=== PATIENT | male | born 1965 | race Caucasian/White ===

== ENCOUNTER 2017-09-28 09:39 | Emergency (ER) | payer BC ==
[~2017-09-28] VITALS: Ht 177.8 cm; Wt 91.2 kg
[~2017-09-28 09:39] MED LIST: ASPIRIN EC81 MG PO; CLOPIDOGREL75 MG PO; CRESTOR10 MG PO; ISOSORBIDE MONO30 MG PO; METOPROLOL SUCC25 MG PO; NITROSTAT0.4 MG SL; OMEPRAZOLE20 MG PO; ZYRTEC10 M3 PO
[2017-09-28] MEDS ORDERED: LORAZEPAM1 MG PO (10:34)
--- NOTE | 2017-09-29 20:49 | EKG ---
[facility] [address] [place] [address] Signed Normal sinus rhythm Normal ECG When compared with ECG of 17-APR-2016 19:22, No significant change was found Confirmed by SANTY HARGROVE MD ([id number]) on 09/29/2017 8:49:10 PM Electronically Signed By: SANTY HARGROVE MD 09/29/17 2049 PATIENT NAME: WILFRIDO VARGAS JOE Electrocardiogram DATE OF : 65 PHYSICIAN: SANTY HARGROVE MD REPORT #: [id number] REPORT IS CONFIDENTIAL AND NOT TO BE RELEASED WITHOUT AUTHORIZATION
== END 2017-09-28 11:06 | disposition home or self-care (01) ==
LOC: ED 09:39
DX: R06.00 Dyspnea, unspecified (principal); Z91.038 Other insect allergy status; Z91.030 Bee allergy status; Z79.82 Long term (current) use of aspirin; Z79.899 Other long term (current) drug therapy
CPT/HCPCS: 71045; 80053; 84484; 85025; 85379; 93005; 93010; 99284

== ENCOUNTER 2020-12-27 06:33 | Day surgery (SDC) | payer BC ==
[~2020-12-27 06:33] MED LIST changes: +LORAZEPAM1 MG PO
--- NOTE | 2020-12-27 09:27 | NUR ---
12/27/20 0926 Denise Del Cid 0940 PT ARRIVED TO PACU ON 2L VIA NC, PT WAKES AND IS REORIENTED TO PACU. VSS.
--- NOTE | 2020-12-27 10:10 | NUR ---
PT ALERT, ORIENTED AND SEEMS VERY RELAXED. HERE FOR SCOPE, HAS HAD PREVIOUS. SEEMED TO DEAL WITH PREP APPROPRIATELY, ALL QUESTIONS ASKED ANSWERED. GAVE BLESSING, WILL FOLLOW NEEDED
--- NOTE | 2020-12-27 10:11 | OR ---
[facility] [address] [place], [place] [address] Signed DATE OF OPERATION: 12/27/2020 SURGEON: Michelle Murrieta MD PREOPERATIVE DIAGNOSES: 1. Personal history of colonic polyps in 2016 at age 50. 2. Father with colonic polyps at age 80. POSTOPERATIVE DIAGNOSES: 1. 4-6 mm polyps x3 at 8 cm/rectum. 2. 4 mm polyp at 60 cm. 3. 4-6 mm polyps x2 at hepatic flexure. 4. 4-6 mm polyps x3 at 50 cm. PROCEDURE: Colonoscopy with hot biopsy. ESTIMATED BLOOD LOSS: None. INDICATIONS: Rik is a 55-year-old gentleman, who returns for a followup colonoscopy. His father had colonic polyps at age 80. Rik had adenomatous polyps in the right colon back in 2016 at the age of 50. He currently has no lower GI complaints. In the office, I gave him a pamphlet on colonoscopy. He remembers the test quite well. There is risk including, but not limited to gas bloating, crampy abdominal pain, bleeding, perforation requiring surgery, and missed diagnosis. He also understands the need for IV conscious sedation. He had expressed understanding and wished to proceed. PROCEDURE NOTE: Rik was taken into our endoscopy suite and placed in the left lateral decubitus position. He was given IV sedation with 9 mg of Versed and 175 mcg of fentanyl. A digital rectal exam was performed and this was unremarkable. Prostate not particularly concerning. The adult colonoscope was introduced, advanced all around into the cecum under direct visualization of the camera. It took a little extra sedation abdominal compression in order to advance the scope. His prep was quite excellent. We could easily see the appendiceal orifice and the ileocecal valve. The scope was slowly withdrawn. The above-mentioned polyps were easily removed with the help of hot biopsy forceps. No diverticulosis. The scope had been retroflexed in the rectum and there was no additional pathology noted above the anal canal. After this, the gas was suctioned Electronically Signed By: MICHELLE MURRIETA MD 12/27/20 1011 PATIENT NAME: RIK VARGAS OPERATIVE REPORT DATE OF : 65 REPORT #: [id number] PHYSICIAN: MICHELLE MURRIETA MD PCP: TERE CARNES MD REPORT IS CONFIDENTIAL AND NOT TO BE RELEASED WITHOUT AUTHORIZATION [facility] [address] [place], [place] [address] Signed out and the colonoscope removed. Rik has tolerated the procedure quite well. RECOMMENDATIONS: I will see Rik back in my office in 7 to 14 days to review his results. I suspect he will stay on the 5-year rotation. Michelle Murrieta MD ALB/MALISSAL /[id number] cc: MD Tere Rodriguez MD Copies: MICHELLE MURRIETA MD, ROBERT D DMD ~ Electronically Signed By: MICHELLE MURRIETA MD 12/27/20 1011 PATIENT NAME: RIK VARGAS OPERATIVE REPORT DATE OF : 65 REPORT #: [id number] PHYSICIAN: MICHELLE MURRIETA MD PCP: TERE CARNES MD REPORT IS CONFIDENTIAL AND NOT TO BE RELEASED WITHOUT AUTHORIZATION
--- NOTE | 2020-12-28 18:13 | PATH ---
[facility] [address] [place], [place] [address] Signed SPECIMEN(S): A COLON POLYP 8 CM SPECIMEN(S): B COLON POLYP 60 CM SPECIMEN(S): C HEPATIC FLEXURE POLYP SPECIMEN(S): D COLON POLYP 50 CM SPECIMEN SOURCE: A. COLON POLYP 8 CM B. COLON POLYP 60 CM C. HEPATIC FLEXURE POLYP D. COLON POLYP 50 CM CLINICAL HISTORY: History of polyps. Post Op: Multiple colon polyps. MICROSCOPIC DESCRIPTION: Histologic sections of all submitted blocks are examined by light microscopy. These findings, together with the gross examination, support the pathologic diagnosis. FINAL PATHOLOGIC DIAGNOSIS: A. Colon, polyp at 8 cm, polypectomy: - Hyperplastic polyp. - Negative for dysplasia or malignancy. B. Colon, polyp at 60 cm, polypectomy: - Colonic mucosa with no histopathologic abnormality. - Negative for dysplasia or malignancy. C. Colon, hepatic flexure, polyp, polypectomy: - Fragments of tubular adenoma. - Negative for high-grade dysplasia or malignancy. D. Colon, polyp at 50 cm, polypectomy: - Fragments of tubular adenoma. - Negative for high-grade dysplasia or malignancy. COMMENT: Regarding specimen B: Multiple additional deeper levels were examined. NAL:cml:C2NR GROSS DESCRIPTION: Four specimens are received in four containers labeled with "TE". A. The specimen, labeled "TE, colon polyp at 8 cm," is received in formalin and consists of one piece of pink-sharma tissue both measuring 0.4 cm in greatest dimension the specimen is bisected and PATIENT NAME: WILFRIDO VARGAS PATHOLOGY DATE OF : 65 REPORT #: [id number] PHYSICIAN: JOESPH LYNN PCP: TERE CARNES MD REPORT IS CONFIDENTIAL AND NOT TO BE RELEASED WITHOUT AUTHORIZATION [facility] [address] [place], [place] [address] Signed submitted entirely in cassette A1. B. The specimen, labeled "TE, colon polyp 60 cm," is received in formalin and consists of one fragment of pink-sharma tissue (0.2 cm in greatest dimension). The specimen is submitted entirely in cassette B1. C. The specimen, labeled "TE, hepatic flexure polyp," is received in formalin and consists of four fragments of pink-sharma tissue that range in size from 0.1-0.3 cm in greatest dimension. The specimen is submitted entirely in cassette C1. D. The specimen, labeled "TE, colon polyp at 50 cm," is received in formalin and consists of six fragments of pink-sharma tissue that range in size from 0.2-0.3 cm in greatest dimension . The specimen is submitted entirely in cassette D1. AC/AI (under the direct supervision of a pathologist) PERFORMING LABORATORY: The technical component was performed by [facility], [address] [place] [id number] (Flosser: Nia Sheppard MD; CLIA# [id number]). [facility], [address] [address] (CLIA# [id number]). Diagnostician: Dayna Turpin MD Pathologist Electronically Signed 12/28/2020 Copies: ~ PATIENT NAME: WILFRIDO VARGAS PATHOLOGY DATE OF : 65 REPORT #: [id number] PHYSICIAN: JOESPH PATHOLOGY PCP: TERE CARNES MD REPORT IS CONFIDENTIAL AND NOT TO BE RELEASED WITHOUT AUTHORIZATION
== END 2020-12-27 10:15 | disposition home or self-care (01) ==
LOC: DS 06:33
PROVIDERS: ATTEND Colon & Rectal Surgery
PROC: 0DBL8ZX Excision of Transverse Colon, Via Natural or Artificial Opening Endoscopic, Diagnostic (ICD-10-PCS; 2020-12-27)
PROC: 0DBP8ZX Excision of Rectum, Via Natural or Artificial Opening Endoscopic, Diagnostic (ICD-10-PCS; principal; 2020-12-27 06:45)
DX: D12.3 Benign neoplasm of transverse colon (principal); K62.1 Rectal polyp; I25.10 Atherosclerotic heart disease of native coronary artery without angina pectoris; I10 Essential (primary) hypertension; J45.909 Unspecified asthma, uncomplicated; K21.9 Gastro-esophageal reflux disease without esophagitis; Z88.8 Allergy status to other drugs, medicaments and biological substances; Z86.010 Personal history of colon polyps; Z83.71 Family history of colonic polyps
CPT/HCPCS: 99153; G0500; J2250; J3010; J7121

== ENCOUNTER 2024-02-10 16:46 | Emergency (ER) | payer BC ==
[~2024-02-10] VITALS: Ht 177.8 cm; Wt 95.6 kg
[~2024-02-10 16:46] MED LIST changes: +COQ-10100 MG PO; +COZAAR100 MG PO; +ELIQUIS5 MG PO; +FLOMAX0.4 MG PO; +PLAVIX75 MG PO; +ZYRTEC10 MG PO
[2024-02-10 19:25] LABS: BASOPHILS 0.5 % (0-2); EOSINOPHILS 3.1 % (0-6); HEMATOCRIT 44.4 % (35.0-50.0); HEMOGLOBIN 15.2 g/dL (12.0-18.0); LYMPHOCYTES 25.5 % (24-44); MCH 29.6 (27-36); MCHC 34.1 g/dl (30-36); MCV 86.8 fl (81-99); MONOCYTES 12.3 % (0-12); NEUTROPHILS 58.6 % (39-80); PLATELET COUNT 189 K/uL (140-440); RBC 5.12 M/ul (4.3-5.7); RDW 13.9 (10.5-15.0)
[2024-02-10 19:52] LABS: ALBUMIN 3.8 g/dL (3.4-5.0); ALBUMIN/GLOBULIN RATIO 1.19 (1.1-2.4); ANION GAP 12.5 (7-21); BILIRUBIN, TOTAL 0.7 ng/dL (0.2-1.0); BUN/CREATININE RATIO 17.2 (6.0-28.6); CALCIUM 8.6 mg/dL (8.5-10.1); CREATININE, SERUM 0.93 mg/dL (0.70-1.30); POTASSIUM 3.5 mmol/L (3.5-5.1); TSH, 3RD GENERATION 2.443 uIU/mL (0.358-3.740)
[2024-02-10 20:07] LABS: BILIRUBIN, URINE NEGATIVE (negative); BLOOD/HGB, URINE NEGATIVE (Negative); KETONE, URINE NEGATIVE (Negative); LEUK ESTERASE, URINE NEGATIVE (negative); NITRITE, URINE NEGATIVE (negative)
[2024-02-10 21:05] VITALS: BP 152/89
--- NOTE | 2024-02-11 15:10 | EKG ---
[facility] [address] [facility] [place] [address] Signed Poor data quality, interpretation may be adversely affected Normal sinus rhythm Normal ECG When compared with ECG of 09-NOV-2023 09:54, No significant change was found Confirmed by Sylvie Pak ([id number]) on 02/11/2024 3:10:00 PM Electronically Signed By: SYLVIE PAK MD 02/11/24 1510 PATIENT NAME: WILFRIDO VARGAS JOE Electrocardiogram DATE OF : 65 PHYSICIAN: SYLVIE PAK MD REPORT #: [id number] REPORT IS CONFIDENTIAL AND NOT TO BE RELEASED WITHOUT AUTHORIZATION
== END 2024-02-10 20:56 | disposition home or self-care (01) ==
LOC: ED 16:46
PROVIDERS: Internal Medicine
DX: R00.2 Palpitations (principal); I25.10 Atherosclerotic heart disease of native coronary artery without angina pectoris; Z95.5 Presence of coronary angioplasty implant and graft; Z88.8 Allergy status to other drugs, medicaments and biological substances; Z91.030 Bee allergy status; Z79.899 Other long term (current) drug therapy; Z79.82 Long term (current) use of aspirin
CPT/HCPCS: 36415; 71045; 80053; 81003; 83735; 84443; 84484; 85025

== ENCOUNTER 2024-04-26 23:00 | Emergency (ER) | payer BC ==
[~2024-04-26] VITALS: Ht 177.8 cm; Wt 95.0 kg
[~2024-04-26 23:00] MED LIST changes: +EPINEPHRIN0.3 MG/0.3 IM; +HYDROCODON-ACE1 EA10 PO; +METOPROLOL SUCC50 MG PO
[2024-04-26] MEDS ORDERED: TRANEXAMIC ACID 1,000 MG/10 ML AMP TOP ONE (23:30)
[2024-04-27 00:17] VITALS: BP 173/99
== END 2024-04-27 00:17 | disposition home or self-care (01) ==
LOC: ED 23:00
DX: R04.0 Epistaxis (principal); I48.91 Unspecified atrial fibrillation; Z79.01 Long term (current) use of anticoagulants; Z79.82 Long term (current) use of aspirin; Z79.02 Long term (current) use of antithrombotics/antiplatelets; Z79.899 Other long term (current) drug therapy; Z88.8 Allergy status to other drugs, medicaments and biological substances; Z91.030 Bee allergy status
CPT/HCPCS: 99283

== ENCOUNTER 2024-05-22 18:19 | Emergency (ER) | payer BC ==
[~2024-05-22] VITALS: Ht 177.8 cm; Wt 95.3 kg
--- OUTSIDE RECORDS SUMMARY | 2024-05-22 18:26 | XMS ---
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 Jeanne has no Care Guidelines for this patient. [facility] V[facility] (12 MO.) [facility] T[facility] NOTE: Visits indicate total known visits. ED/C VISIT TRACKING (12 MO.) 05/22/2024 18:20 [facility] [place] [facility]: Emergency COMPLAINT: - WEAKNESS/LACK OF ENERGY 04/26/2024 23:01 [facility] [place] TYPE: Emergency COMPLAINT: - NOSE BLEED DIAGNOSES: - Allergy status to other drugs, medicaments and biological substances - Bee allergy status - Epistaxis - bed bug exterminator (current) use of anticoagulants - alf (current) use of antithrombotics/antiplatelets - alf (current) use of aspirin - Other terminal superintendent (current) drug therapy - Unspecified atrial fibrillation 02/10/2024 16:46 [facility] [place] TYPE: Emergency COMPLAINT: - IRREGULAR HEART BEAT DIAGNOSES: - Allergy status to other drugs, medicaments and biological substances - Atherosclerotic heart disease of [place] coronary artery without angina pectoris - Bee allergy status - bed bug exterminator (current) use of aspirin - Other terminal superintendent (current) drug therapy - Palpitations - Presence of coronary angioplasty implant and graft INPATIENT VISIT TRACKING (12 MO.) No inpatient visits to display in this time frame [email or web address]
[2024-05-22] MEDS ORDERED: AMLODIPINE BES2.5 MG (19:46)
[2024-05-22 20:16] LABS: BASOPHILS 0.4 % (0-2); EOSINOPHILS 2.1 % (0-6); HEMATOCRIT 43.2 % (35.0-50.0); HEMOGLOBIN 15.1 g/dL (12.0-18.0); MCH 30.4 (27-36); MONOCYTES 10.9 % (0-12); NEUTROPHILS 60.6 % (39-80); PLATELET COUNT 186 K/uL (140-440); RBC 4.97 M/ul (4.3-5.7); RDW 13.7 (10.5-15.0)
[2024-05-22 20:29] LABS: ALBUMIN 3.8 g/dL (3.4-5.0); ALBUMIN/GLOBULIN RATIO 1.12 (1.1-2.4); ANION GAP 11.7 (7-21); BILIRUBIN, TOTAL 0.5 ng/dL (0.2-1.0); CALCIUM 8.8 mg/dL (8.5-10.1); CREATININE, SERUM 1.15 mg/dL (0.70-1.30); POTASSIUM 3.7 mmol/L (3.5-5.1); PROTEIN, TOTAL 7.2 g/dL (6.4-8.2)
[2024-05-22 20:51] LABS: BILIRUBIN, URINE NEGATIVE (negative); BLOOD/HGB, URINE NEGATIVE (Negative); KETONE, URINE NEGATIVE (Negative); LEUK ESTERASE, URINE NEGATIVE (negative); NITRITE, URINE NEGATIVE (negative)
--- NOTE | 2024-05-22 20:52 | EKG ---
[facility] [address] [facility] [place] [address] Signed Normal sinus rhythm Nonspecific ST abnormality Abnormal ECG When compared with ECG of 10-FEB-2024 16:53, No significant change was found Confirmed by Nathaniel Dalal MD ([id number]) on 05/22/2024 8:52:16 PM Electronically Signed By: NATHANIEL DALAL DO 05/22/242051 PATIENT NAME: WILFRIDO VARGAS JOE Electrocardiogram DATE OF : 65 PHYSICIAN: NATHANIEL DALAL DO REPORT #: [id number] REPORT IS CONFIDENTIAL AND NOT TO BE RELEASED WITHOUT AUTHORIZATION
[2024-05-22 23:10] VITALS: BP 140/90
[2024-05-23] MEDS ORDERED: TAMSULOSIN HCL0.4 MG PO (21:52)
--- NOTE | 2024-05-26 14:36 | EKG ---
[facility] [address] [facility] [place] [address] \T\ T wave abnormality, consider inferior ischemia Abnormal ECG When compared with ECG of 22-MAY-2024 18:31, (Unconfirmed) No significant change was found Confirmed by Nora Dalal MD ([id number]) on 05/26/2024 2:36:14 PM Electronically Signed By: NORA DALAL DO 05/26/24 1436 PATIENT NAME: WILFRIDO VARGAS Electrocardiogram DATE OF : 65 PHYSICIAN: NORA DALAL DO REPORT #: [id number] REPORT IS CONFIDENTIAL AND NOT TO BE RELEASED WITHOUT AUTHORIZATION
== END 2024-05-22 23:12 | disposition home or self-care (01) ==
LOC: ED 18:19
PROVIDERS: Internal Medicine
DX: R53.83 Other fatigue (principal); I48.91 Unspecified atrial fibrillation; Z79.01 Long term (current) use of anticoagulants; Z79.82 Long term (current) use of aspirin; Z79.899 Other long term (current) drug therapy; Z95.5 Presence of coronary angioplasty implant and graft; Z88.8 Allergy status to other drugs, medicaments and biological substances; Z91.030 Bee allergy status
CPT/HCPCS: 36415; 71045; 80053; 81003; 83880; 84484; 85025; 93005; 93010; 99284

== ENCOUNTER 2024-05-23 21:43 | Emergency (ER) | payer BC ==
[~2024-05-23] VITALS: Ht 177.8 cm; Wt 93.7 kg
[~2024-05-23 21:43] MED LIST changes: +AMLODIPINE BES2.5 MG
--- OUTSIDE RECORDS SUMMARY | 2024-05-23 21:48 | XMS ---
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 Jeanne has no Care Guidelines for this patient. [facility] MO[facility] T[facility] 4 NOTE: Visits indicate total known visits. ED/C VISIT TRACKING (12 MO.) 05/23/2024 21:43 [facility] [place] TYPE: Emergency COMPLAINT: - CHEST PAIN 05/22/2024 18:20 [facility] [place] TYPE: Emergency COMPLAINT: - WEAKNESS/LACK OF ENERGY DIAGNOSES: - Allergy status to other drugs, medicaments and biological substances - Bee allergy status - oysterman (current) use of anticoagulants - retirement (current) use of aspirin - Other fatigue - Other long filler cigar roller machine (current) drug therapy - Presence of coronary angioplasty implant and graft - Unspecified atrial fibrillation 04/26/2024 23:01 [facility] [place] TYPE: Emergency COMPLAINT: - NOSE BLEED DIAGNOSES: - Allergy status to other drugs, medicaments and biological substances - Bee allergy status - Epistaxis - retirement (current) use of anticoagulants - retirement (current) use of antithrombotics/antiplatelets - oysterman (current) use of aspirin - Other group home (current) drug therapy - Unspecified atrial fibrillation 02/10/2024 16:46 [facility] [place] TYPE: Emergency COMPLAINT: - IRREGULAR HEART BEAT DIAGNOSES: - Allergy status to other drugs, medicaments and biological substances - Atherosclerotic heart disease of [place] coronary artery without angina pectoris - Bee allergy status - retirement (current) use of aspirin - Other long filler cigar roller machine (current) drug therapy - Palpitations - Presence of coronary angioplasty implant and graft INPATIENT VISIT TRACKING (12 MO.) No inpatient visits to display in this time frame [email or web address]
[2024-05-23] MEDS ORDERED: TAMSULOSIN HCL0.4 MG PO (21:52)
[2024-05-23 22:05] LABS: BASOPHILS 0.8 % (0-2); EOSINOPHILS 2.3 % (0-6); HEMATOCRIT 44.7 % (35.0-50.0); HEMOGLOBIN 15.7 g/dL (12.0-18.0); MCH 30.3 (27-36); MCHC 35.1 g/dl (30-36); MCV 86.5 fl (81-99); MONOCYTES 11.5 % (0-12); NEUTROPHILS 51.4 % (39-80); PLATELET COUNT 206 K/uL (140-440); RBC 5.18 M/ul (4.3-5.7); RDW 13.7 (10.5-15.0)
[2024-05-23 22:15] LABS: ALBUMIN 3.9 g/dL (3.4-5.0); ALBUMIN/GLOBULIN RATIO 1.11 (1.1-2.4); ANION GAP 6.4 (7-21); BILIRUBIN, TOTAL 0.6 ng/dL (0.2-1.0); BUN/CREATININE RATIO 15.38 (6.0-28.6); CALCIUM 8.9 mg/dL (8.5-10.1); CREATININE, SERUM 1.04 mg/dL (0.70-1.30); MAGNESIUM 2.2 mg/dL (1.8-2.4); POTASSIUM 3.4 mmol/L (3.5-5.1); PROTEIN, TOTAL 7.4 g/dL (6.4-8.2)
[2024-05-23] MEDS ORDERED: HEPARIN SOD,PORK IN 0.45% NACL 500 ML IV SCH (22:30)
[2024-05-23] MEDS ORDERED: NITROGLYCERIN 0.4 MG/HR 1 EA TDSY TD ONE (22:30)
[2024-05-23] MEDS ORDERED: ASPIRIN 81 MG CHEW PO ONE (22:30)
[2024-05-23] MEDS ORDERED: HEParin SOD (PORCINE) 5,000 UNIT/ML VIAL IV ONE (22:30)
[2024-05-24 03:10] VITALS: BP 118/77
--- NOTE | 2024-05-26 14:39 | EKG ---
[facility] [address] [facility] [place] [address] Signed Normal sinus rhythm ST \T\ T wave abnormality, consider inferior ischemia Abnormal ECG When compared with ECG of 22-MAY-2024 20:31, (Unconfirmed) No significant change was found Confirmed by Nora Dalal MD ([id number]) on 05/26/2024 2:39:02 PM Electronically Signed By: NORA DALAL DO 05/26/24 1439 PATIENT NAME: WILFRIDO VARGAS Electrocardiogram DATE OF : 65 PHYSICIAN: NORA DALAL DO REPORT #: [id number] REPORT IS CONFIDENTIAL AND NOT TO BE RELEASED WITHOUT AUTHORIZATION
== END 2024-05-24 03:10 | disposition short-term general hospital (02) ==
LOC: ED 21:43
PROVIDERS: Family Medicine
DX: I21.4 Non-ST elevation (NSTEMI) myocardial infarction (principal); I10 Essential (primary) hypertension; Z95.5 Presence of coronary angioplasty implant and graft; Z91.030 Bee allergy status; Z88.8 Allergy status to other drugs, medicaments and biological substances; Z79.899 Other long term (current) drug therapy; Z79.01 Long term (current) use of anticoagulants; Z79.82 Long term (current) use of aspirin
CPT/HCPCS: 36415; 71045; 71275; 74174; 80053; 83735; 83880; 84484; 85025; 93005; 93010; 96374; 99285-25; A9270; J1644

== ENCOUNTER 2025-04-24 21:00 | Emergency (ER) | payer BC ==
[~2025-04-24] VITALS: Ht 177.8 cm; Wt 92.0 kg
--- OUTSIDE RECORDS SUMMARY | ~2025-04-24 | XMS | Continuity of Care Document ---
Demographics + + + | Address | [address] | | | [place] [address] | + + + | Preferred Language | Unknown | + + + | Marital Status | | + + + | Shinto Affiliation | Unknown | + + + | Race | White | + + + | Ethnic Group | Not or | + + + Author + + + | Author | [facility] | + + + | Organization | [facility] | + + + | Address | [address] | | | [place] [address] | + + + | Phone | | + + + Care Team Providers + + + + | Care [place] Administrator Name | Role | Phone | + [...] | (no date) | CLOPIDOGREL BISULFATE | [facility] | | | | [facility] | + + + + | (no date) | UBIDECARENONE | [facility] | | | | [facility] | + + + + | (no date) | AMLODIPINE BESYLATE | [facility] | | | | [facility] | + + + + | (no date) | ASPIRIN | [facility] | | | | [facility] | + + + + | (no date) | CLOPIDOGREL BISULFATE | [facility] | | | | [facility] | + + + + | (no date) | ISOSORBIDE MONONITRATE | [facility] | | | | [facility] | + + + + | (no date) | ROSUVASTATIN CALCIUM | [facility] | | | | [facility] | + + + + | (no date) | TAMSULOSIN HCL | [facility] | | | | [facility] | + + + + | (no date) | METOPROLOL SUCCINATE | [facility] | | | | [facility] | + + + + | (no date) | METOPROLOL SUCCINATE | [facility] | | | | [facility] | + + + + | (no date) | LOSARTAN POTASSIUM | [facility] | | | | [facility] | + + + + Problems No information. Procedures No information. Results/Labs No information. Social History +--------+ + + | date | description | facility | +--------+ + + Vital Signs No information."
[~2025-04-24 21:00] MED LIST changes: +CYCLOBENZAPRINE10 MG PO; +TAMSULOSIN HCL0.4 MG PO
[2025-04-24] MEDS ORDERED: ASPIRIN 81 MG CHEW PO ONE (21:15)
[2025-04-24] MEDS ORDERED: NITROGLYCERIN 0.4 MG SUBL SL PRN (21:15)
[2025-04-24 21:23] LABS: BASOPHILS 0.3 % (0.2-1.2); EOSINOPHILS 1.8 % (0.8-7.0); LYMPHOCYTES 28.4 % (21.8-53.1); MCH 29.6 PG (25.7-32.2); MCHC 34.5 g/dL (32.3-36.5); MCV 85.6 fL (79.0-92.2); MONOCYTES 10.9 % (5.3-12.2); NEUTROPHILS 58.3 % (34.0-67.9); RBC 4.94 M/uL (4.63-6.08)
[2025-04-24 21:33] LABS: INR 1.06 (0.80-1.30); PROTIME 13.1 Sec (11.2-14.2)
[2025-04-24 21:41] LABS: ALT (SGPT) 28.0 U/L (14-59); AST (SGOT) 22.0 U/L (15-37); GLOMERULAR FILTRATION RATE,EST 80.0 mL/min (>60); PROTEIN, TOTAL 7.0 g/dL (6.4-8.2); UREA NITROGEN 16.0 mg/dL (7-18)
[2025-04-24 23:14] VITALS: BP 144/81
--- NOTE | 2025-04-25 20:41 | EKG ---
[facility] [address] [facility] [place] [address] Signed Sinus bradycardia Otherwise normal ECG When compared with ECG of 11-JUN-2024 05:42, premature atrial complexes are no longer present Confirmed by JOE LUIS MD ([id number]) on 04/25/2025 8:41:07 PM Electronically Signed By: JOE LUIS 04/25/252040 PATIENT NAME: WILFRIDO VARGAS JOE Electrocardiogram DATE OF : 65 PHYSICIAN: JOE LUIS REPORT #: [id number] REPORT IS CONFIDENTIAL AND NOT TO BE RELEASED WITHOUT AUTHORIZATION
== END 2025-04-24 23:15 | disposition home or self-care (01) ==
LOC: ED 21:00
PROVIDERS: Internal Medicine
DX: I25.118 Atherosclerotic heart disease of native coronary artery with other forms of angina pectoris (principal); I48.91 Unspecified atrial fibrillation; Z95.5 Presence of coronary angioplasty implant and graft; Z88.8 Allergy status to other drugs, medicaments and biological substances; Z91.030 Bee allergy status; Z79.02 Long term (current) use of antithrombotics/antiplatelets; Z79.01 Long term (current) use of anticoagulants; Z79.82 Long term (current) use of aspirin; Z79.899 Other long term (current) drug therapy
CPT/HCPCS: 36415; 71045; 80053; 83735; 84484; 85025; 85610; 93005; 93010; 99285-25; A9270

== ENCOUNTER 2025-04-26 16:34 | Emergency (ER) | payer BC ==
[~2025-04-26] VITALS: Ht 177.8 cm; Wt 89.0 kg
--- OUTSIDE RECORDS SUMMARY | ~2025-04-26 | XMS | Continuity of Care Document ---
Demographics + + + | Address | [address] | | | [place] [address] | + + + | Preferred Language | Unknown | + + + | Marital Status | | + + + | Hinduism Affiliation | Unknown | + + + | Race | White | + + + | Ethnic Group | Not or | + + + Author + + + | Author | [facility] | + + + | Organization | [facility] | + + + | Address | [address] | | | [place] [address] | + + + | Phone | | + + + Care Team Providers + + + + | Care Continuous Conveyor Screen Drier Name | Role | Phone | + + + + Unavailable | Unavailable | + + + + Allergies No information. Encounters No information. Functional Status No information. Immunizations No information. Medications + + + + | date | description | facility | + + + + | (no date) | CETIRIZINE HCL | [facility] | | | | [facility] | + + + + | (no date) | APIXABAN | [facility] | | | | [facility] | + + + + | (no date) | EPINEPHRINE | [facility] | | | | [facility] | + + + + | (no date) | OMEPRAZOLE | [facility] | | | | [facility] | + + + + | (no date) | NITROGLYCERIN | [facility] | | | | [facility] | + + + + | (no date) | CLOPIDOGREL BISULFATE | [facility] | | | | [facility] | + + + + | (no date) | UBIDECARENONE | [facility] | | | | [facility] | + + + + | (no date) | AMLODIPINE BESYLATE | [facility] | | | | [facility] | + + + + | (no date) | ASPIRIN | [facility] | | | | [facility] | + + + + | (no date) | CLOPIDOGREL BISULFATE | [facility] | | | | [facility] | + + + + | (no date) | ISOSORBIDE MONONITRATE | [facility] | | | | [facility] | + + + + | (no date) | ROSUVASTATIN CALCIUM | [facility] | | | | [facility] | + + + + | (no date) | TAMSULOSIN HCL | [facility] | | | | [facility] | + + + + | (no date) | METOPROLOL SUCCINATE | [facility] | | | | [facility] | + + + + | (no date) | METOPROLOL SUCCINATE | [facility] | | | | [facility] | + + + + | (no date) | LOSARTAN POTASSIUM | [facility] | | | | [facility] | + + + + Problems No information. Procedures No information. Results/Labs No information. Social History +--------+ + + | date | description | facility | +--------+ + + Vital Signs No information."
--- OUTSIDE RECORDS SUMMARY | 2025-04-26 16:41 | XMS ---
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 Jeanne has no Care Guidelines for this patient. [facility] NOTE: Visits indicate total known visits. ED/C VISIT TRACKING (12 MO.) 04/26/2025 16:[address] [facility] [address] [facility] [place] TYPE: Emergency COMPLAINT: - CHEST PAIN 04/24/2025 21:01 [facility] [place] TYPE: Emergency COMPLAINT: - CHEST PAIN DIAGNOSES: - Allergy status to other drugs, medicaments and biological substances - Atherosclerotic heart disease of [place] coronary artery with other forms of angina pectoris - Bee allergy status - snf (current) use of anticoagulants - snf (current) use of antithrombotics/antiplatelets - snf (current) use of aspirin - Other chest pain - Other snf (current) drug therapy - Presence of coronary angioplasty implant and graft - Unspecified atrial fibrillation 06/11/2024 05:36 [facility] [place] TYPE: Emergency COMPLAINT: - CHEST PAIN DIAGNOSES: - Allergy status to other drugs, medicaments and biological substances - Bee allergy status - Chest pain, unspecified - snf (current) use of anticoagulants - snf (current) use of aspirin - Other chest pain - Other snf (current) drug therapy 05/23/2024 21:43 [facility] [place] TYPE: Emergency COMPLAINT: - CHEST PAIN DIAGNOSES: - Allergy status to other drugs, medicaments and biological substances - Bee allergy status - Essential (primary) hypertension - tank terminal gauger (current) use of anticoagulants - snf (current) use of aspirin - Non-ST elevation (NSTEMI) myocardial infarction - Other snf (current) drug therapy - Precordial pain - Presence of coronary angioplasty implant and graft 05/22/2024 18:20 [facility] [place] TYPE: Emergency COMPLAINT: - WEAKNESS/LACK OF ENERGY DIAGNOSES: - Allergy status to other drugs, medicaments and biological substances - Bee allergy status - snf (current) use of anticoagulants - snf (current) use of aspirin - Other fatigue - Other intermediate manager (current) drug therapy - Presence of coronary angioplasty implant and graft - Unspecified atrial fibrillation 04/26/2024 23:01 [facility] [place] TYPE: Emergency COMPLAINT: - NOSE BLEED DIAGNOSES: - Allergy status to other drugs, medicaments and biological substances - Bee allergy status - Epistaxis - snf (current) use of anticoagulants - snf (current) use of antithrombotics/antiplatelets - tank terminal gauger (current) use of aspirin - Other snf (current) drug therapy - Unspecified atrial fibrillation INPATIENT VISIT TRACKING (12 MO.) 05/24/2024 04:24 [facility] TYPE: Medical Surgical COMPLAINT: - NON STEMI TRANSFER FROM [facility] DIAGNOSES: 0. Non-ST elevation (NSTEMI) myocardial infarction 1. Non-ST elevation (NSTEMI) myocardial infarction 2. Chronic atrial fibrillation, unspecified 3. Atherosclerotic heart disease of [place] coronary artery without angina pectoris 4. Essential (primary) hypertension 5. Hyperlipidemia, unspecified 6. Gastro-esophageal reflux disease without esophagitis 7. Hypokalemia 8. Benign prostatic hyperplasia without lower urinary tract symptoms 9. tank terminal gauger (current) use of anticoagulants 10. Presence of coronary angioplasty implant and graft 11. snf (current) use of aspirin 12. Allergy status to other drugs, medicaments and biological substances 13. Other nonmedicinal substance allergy status [email or web address]
[2025-04-26] MEDS ORDERED: ASPIRIN 81 MG CHEW PO ONE (16:45)
[2025-04-26 16:53] LABS: BASOPHILS 0.4 % (0.2-1.2); EOSINOPHILS 1.6 % (0.8-7.0); LYMPHOCYTES 25.1 % (21.8-53.1); MCH 29.3 PG (25.7-32.2); MCHC 34.3 g/dL (32.3-36.5); MCV 85.4 fL (79.0-92.2); MONOCYTES 9.4 % (5.3-12.2); NEUTROPHILS 63.1 % (34.0-67.9); RBC 5.29 M/uL (4.63-6.08)
[2025-04-26 17:13] LABS: ALT (SGPT) 36.0 U/L (14-59); AST (SGOT) 27.0 U/L (15-37); GLOMERULAR FILTRATION RATE,EST 93.0 mL/min (>60); PROTEIN, TOTAL 7.3 g/dL (6.4-8.2); UREA NITROGEN 15.0 mg/dL (7-18)
[2025-04-26 22:09] VITALS: BP 121/69
--- NOTE | 2025-04-28 11:46 | EKG ---
[facility] [address] [facility] [place] [address] Signed Sinus bradycardia T wave abnormality, consider inferior ischemia Abnormal ECG When compared with ECG of 26-APR-2025 16:36, (Unconfirmed) No significant change was found Confirmed by JOE LUIS MD ([id number]) on 04/28/2025 11:46:27 AM Electronically Signed By: JOE LIUS 04/28/25 1146 PATIENT NAME: SAMWILFRIDO Electrocardiogram DATE OF : 65 PHYSICIAN: JOE LUIS REPORT #: [id number] REPORT IS CONFIDENTIAL AND NOT TO BE RELEASED WITHOUT AUTHORIZATION
--- NOTE | 2025-04-28 11:47 | EKG ---
[facility] [address] [facility] [place], [place] [address] Signed Sinus bradycardia Otherwise normal ECG No previous ECGs available Confirmed by JOE LUIS MD ([id number]) on 04/28/2025 11:47:03 AM Electronically Signed By: JOE LUIS 04/28/25 1147 PATIENT NAME: WILFRIDO VARGAS Electrocardiogram DATE OF : 65 PHYSICIAN: JOE LUIS REPORT #: [id number] REPORT IS CONFIDENTIAL AND NOT TO BE RELEASED WITHOUT AUTHORIZATION
== END 2025-04-26 22:09 | disposition home or self-care (01) ==
LOC: ED 16:34
PROVIDERS: Emergency Medicine
DX: I25.110 Atherosclerotic heart disease of native coronary artery with unstable angina pectoris (principal); I48.91 Unspecified atrial fibrillation; Z95.5 Presence of coronary angioplasty implant and graft; I25.10 Atherosclerotic heart disease of native coronary artery without angina pectoris; Z88.8 Allergy status to other drugs, medicaments and biological substances; Z91.030 Bee allergy status; Z79.01 Long term (current) use of anticoagulants; Z79.82 Long term (current) use of aspirin; Z79.899 Other long term (current) drug therapy
CPT/HCPCS: 36415; 71045; 80053; 83735; 84484; 85025; 93005; 93010; 99285-25; A9270